=== PATIENT | male | born 2000 | race Caucasian/White ===

== ENCOUNTER 2019-08-26 01:22 | Emergency (ER) | payer SELFPAY ==
[~2019-08-26] VITALS: Ht 177.8 cm; Wt 81.6 kg
[2019-08-26 01:34] VITALS: BP 141/88
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
[2019-08-26] MEDS ORDERED: NAPR-683 PO (03:16)
[2019-08-26] MEDS ORDERED: CEPH-264 PO (03:20)
[2019-08-26] MEDS ORDERED: OXYM30SP NS (03:20)
== END 2019-08-26 03:27 | disposition home or self-care (01) ==
LOC: ER 01:22
DX: S02.2XXA Fracture of nasal bones, initial encounter for closed fracture (principal); S01.81XA Laceration without foreign body of other part of head, initial encounter; R51 Headache; F15.10 Other stimulant abuse, uncomplicated; V49.88XA Car occupant (driver) (passenger) injured in other specified transport accidents, initial encounter; Y93.89 Activity, other specified; Y92.488 Other paved roadways as the place of occurrence of the external cause; Y99.8 Other external cause status
CPT/HCPCS: 12011; 70450; 70486; 72125; 99284-25